=== PATIENT | female | born 1965 | race Caucasian/White ===

== ENCOUNTER 2016-10-16 15:47 | Emergency (ER) | payer MEDICARE, MEDICAID ==
[~2016-10-16] VITALS: Ht 167.6 cm; Wt 59.0 kg
[2016-10-16 16:11] LABS: BILIRUBIN,URINE NEGATIVE (NEG); GLUCOSE,URINE NEGATIVE (NEG); NITRITE,URINE NEGATIVE (NEG); PROTEIN,URINE NEGATIVE (NEG-TRACE); UROBILINOGEN,URINE 0.2 mg/dL (0.2 mg/dL)
--- NOTE | 2016-10-16 16:20 | PHYS DOC ---
Past Medical History Past Medical History: High Cholesterol, Hypertension, Hypothyroid Past Surgical History: Tubal ligation, Other Additional Past Surgical Histo: THYROIDECTOMY Alcohol Use: None Drug Use: None Adult General Chief Complaint Chief Complaint: ABDOMINAL PAIN HPI HPI Patient is a 51 year old female who presents with superpubic pain. She states it started about 3-4 days ago and a right upper quadrant now is down in her pubic area. She states it does hurt sometimes when she urinates and does have a vaginal discharge but denies any bleeding, constipation, nausea vomiting or diarrhea. She states the pains been constant in her suprapubic area nothing makes it better or worse. Review of Systems Review of Systems Constitutional: Denies fever or chills [] Eyes: Denies change in visual acuity, redness, or eye pain [] HENT: Denies nasal congestion or sore throat [] Respiratory: Denies cough or shortness of breath [] Cardiovascular: No additional information not addressed in HPI [] GI: Denies nausea, vomiting, bloody stools or diarrhea, positive for abdominal pain. : Denies dysuria or hematuria [] Musculoskeletal: Denies back pain or joint pain [] Integument: Denies rash or skin lesions [] Neurologic: Denies headache, focal weakness or sensory changes [] Endocrine: Denies polyuria or polydipsia [] Current Medications Current Medications Current Medications Medications (Trade) Dose Ordered Sig/Tk Start Time Stop Time Status Last Admin Dose Admin Info (Do NOT chart on this entry -- for MONITORING) 1 each PRN DAILY PRN 10/16/16 16:45 10/18/16 16:44 Iohexol (Omnipaque 240 Mg/ml) 50 ml 1X ONCE 10/16/16 16:30 10/16/16 16:31 DC Iohexol (Omnipaque 300 Mg/ml) 75 ml 1X ONCE 10/16/16 16:30 10/16/16 16:31 DC Morphine Sulfate 4 mg PRN Q15MIN PRN 10/16/16 16:15 10/17/16 16:14 10/16/16 16:22 4 MG Ondansetron HCl (Zofran) 4 mg 1X ONCE 10/16/16 16:30 10/16/16 16:31 DC 10/16/16 16:22 4 MG Sodium Chloride 1,000 ml @ 1,000 mls/hr Q1H 10/16/16 16:30 10/16/16 17:29 DC 10/16/16 16:22 1,000 MLS/HR Allergies Allergies Allergies Coded Allergies Type Severity Reaction Last Updated Verified No Known Drug Allergies 10/16/16 No Physical Exam Physical Exam Constitutional: Well developed, well nourished, no acute distress, non-toxic appearance. [] HENT: Normocephalic, atraumatic, bilateral external ears normal, oropharynx moist, no oral exudates, nose normal. [] Eyes: PERRLA, EOMI, conjunctiva normal, no discharge. [] Neck: Normal range of motion, no tenderness, supple, no stridor. [] Cardiovascular:Heart rate regular rhythm, no murmur [] Lungs & Thorax: Bilateral breath sounds clear to auscultation [] Abdomen/pelvic: Bowel sounds normal, soft, mild tender palpation in the suprapubic area, and no rebound or guarding, no tenderness in the right lower quadrant, no masses, no pulsatile masses. Normal external genitalia, no cervical motion tenderness, no bleeding noted. Skin: Warm, dry, no erythema, no rash. [] Back: No tenderness, no CVA tenderness. [] Extremities: No tenderness, no cyanosis, no clubbing, ROM intact, no edema. [] Neurologic: Alert and oriented X 3, normal motor function, normal sensory function, no focal deficits noted. [] Psychologic: Affect normal, judgement normal, mood normal. [] Current Patient Data Vital Signs Vital Signs Date Time Temp Pulse Resp B/P (MAP) Pulse Ox O2 Delivery O2 Flow Rate FiO2 10/16/16 15:57 98.4 63 20 181/87 (118) 99 Room Air 98.4 Lab Values Laboratory Tests Test 10/16/16 16:01 10/16/16 16:15 Prothrombin Time 12.5 SEC (11.7-14.0) Prothrombin Time INR 1.0 (0.8-1.1) PTT 30 SEC (24-38) Urine Collection Type Unknown Urine Color Yellow Urine Clarity Cloudy Urine pH 7.0 Urine Specific [place] 1.010 Urine Protein Negative mg/dL (NEG-TRACE) Urine Glucose (UA) Negative mg/dL (NEG) Urine Ketones (Stick) Negative mg/dL (NEG) Urine Blood Negative (NEG) Urine Nitrite Negative (NEG) Urine Bilirubin Negative (NEG) Urine Urobilinogen Dipstick 0.2 mg/dL (0.2 mg/dL) Urine Leukocyte Esterase Negative (NEG) Urine RBC 0 /HPF (0-2) Urine WBC 0 /HPF (0-4) Urine Squamous Epithelial Cells Few /LPF Urine Amorphous Sediment Present /HPF Urine Bacteria 0 /HPF (0-FEW) Urine Mucus Slight /LPF White Blood Count 10.2 x10^3/uL (4.0-11.0) Red Blood Count 4.51 x10^6/uL (3.50-5.40) Hemoglobin 14.5 g/dL (12.0-15.5) Hematocrit 42.5 % (36.0-47.0) Mean Corpuscular Volume 94 fL (79-100) Mean Corpuscular Hemoglobin 32 pg (25-35) Mean Corpuscular Hemoglobin Concent 34 g/dL (31-37) Red Cell Distribution Width 13.3 % (11.5-14.5) Platelet Count 444 x10^3/uL (140-400) H Neutrophils (%) (Auto) 75 % (31-73) H Lymphocytes (%) (Auto) 19 % (24-48) L Monocytes (%) (Auto) 4 % (0-9) Eosinophils (%) (Auto) 1 % (0-3) Basophils (%) (Auto) 1 % (0-3) Neutrophils # (Auto) 7.7 x10^3uL (1.8-7.7) Lymphocytes # (Auto) 1.9 x10^3/uL (1.0-4.8) Monocytes # (Auto) 0.4 x10^3/uL (0.0-1.1) Eosinophils # (Auto) 0.1 x10^3/uL (0.0-0.7) Basophils # (Auto) 0.1 x10^3/uL (0.0-0.2) Sodium Level 141 mmol/L (136-145) Potassium Level 3.2 mmol/L (3.5-5.1) L Chloride Level 102 mmol/L (98-107) Carbon Dioxide Level 32 mmol/L (21-32) Anion Gap 7 (6-14) Blood Urea Nitrogen 9 mg/dL (7-20) Creatinine 0.8 mg/dL (0.6-1.0) Estimated GFR (Cockcroft-Gault) 75.0 Glucose Level 145 mg/dL (70-99) H Calcium Level 9.7 mg/dL (8.5-10.1) Total Bilirubin 0.3 mg/dL (0.2-1.0) Direct Bilirubin 0.1 mg/dL (0.0-0.2) Aspartate Amino Transferase (AST) 16 U/L (15-37) Alanine Aminotransferase (ALT) 21 U/L (14-59) Alkaline Phosphatase 103 U/L (46-116) Creatine Kinase 55 U/L (26-192) Creatine Kinase MB (Mass) 0.5 ng/mL (0.0-3.6) Creatine Kinase MB Relative Index 0.9 % (0-4) Total Protein 7.1 g/dL (6.4-8.2) Albumin 3.6 g/dL (3.4-5.0) Lipase 188 U/L (73-393) Laboratory Tests 10/16/16 16:15 Laboratory Tests 10/16/16 16:15 Microbiology 10/16/16 Wet Prep - Final, Complete EKG EKG EKG shows sinus rhythm with rate of [address] elevations or T-wave inversions, normal axis, QTC 408 ms, as interpreted by me. Radiology/Procedures Radiology/Procedures [] Impressions: Abdominal pain Course & Med Decision Making Course & Med Decision Making Pertinent Labs and Imaging studies reviewed. (See chart for details) Patient's CT scan abdomen pelvis in addition to pelvic ultrasound is pending at this time. Patient's being checked out to Dr. Hagen for final disposition. Dragon Disclaimer Dragon Disclaimer This electronic medical record was generated, in whole or in part, using a voice recognition dictation system. Departure Departure Referrals: CARMELA SOSA (PCP) NILA ALCAZAR MD Oct 16, 2016 16:20
[2016-10-16] MEDS: MORPHINE SULFATE 4 MG/ML DISP.SYRIN. IV/SQ PRN ×2 (16:22→19:50)
[2016-10-16] MEDS ORDERED: IOHEXOL 240 MG/ML 50ML VIAL. PO ONE (16:30)
[2016-10-16] MEDS ORDERED: IOHEXOL 300 MG/ML 75 ML VIAL IV ONE (16:30)
[2016-10-16] MEDS ORDERED: ONDANSETRON PF 4 MG/2 ML VIAL. IV ONE (16:30)
[2016-10-16] MEDS ORDERED: IV NORMAL SALINE 1000ML BAG 1,000 ML IV SCH (16:30)
[2016-10-16 16:34] LABS: BASO # 0.1 x10^3/uL (0.0-0.2); BASO % 1 % (0-3); EOS % 1 % (0-3); HEMATOCRIT 42.5 % (36.0-47.0); HEMOGLOBIN 14.5 g/dL (12.0-15.5); LYMPH # 1.9 x10^3/uL (1.0-4.8); LYMPH % 19 % (24-48); MEAN CORPUSCULAR HEMOGLOBIN 32 pg (25-35); MEAN CORPUSCULAR HGB CONC 34 g/dL (31-37); MEAN CORPUSCULAR VOLUME 94 fL (79-100); MONO % 4 % (0-9); NEUT % 75 % (31-73); PLATELET COUNT 444 x10^3/uL (140-400); RED BLOOD COUNT 4.51 x10^6/uL (3.50-5.40); RED CELL DISTRIBUTION WIDTH 13.3 % (11.5-14.5); WHITE BLOOD COUNT 10.2 x10^3/uL (4.0-11.0)
[2016-10-16 16:38] LABS: CALCIUM 9.7 mg/dL (8.5-10.1); CREATININE 0.8 mg/dL (0.6-1.0); POTASSIUM 3.2 mmol/L (3.5-5.1)
[2016-10-16 16:40] LABS: BACTERIA,URINE 0 /HPF (0-FEW); RBC,URINE 0 /HPF (0-2); SQUAMOUS EPITHELIAL CELL,UR FEW /LPF; WBC,URINE 0 /HPF (0-4)
[2016-10-16 16:44] LABS: ALBUMIN 3.6 g/dL (3.4-5.0); DIRECT BILIRUBIN 0.1 mg/dL (0.0-0.2); TOTAL BILIRUBIN 0.3 mg/dL (0.2-1.0); TOTAL PROTEIN 7.1 g/dL (6.4-8.2)
[2016-10-16] MEDS ORDERED: CONTRAST GIVEN MC PRN (16:45)
[2016-10-16 16:51] LABS: PROTHROMBIN TIME PATIENT 12.5 SEC (11.7-14.0)
[2016-10-16 16:57] LABS: CKMB MASS 0.5 ng/mL (0.0-3.6)
--- NOTE | 2016-10-16 18:16 | RAD ---
Examination: Ultrasound pelvis HISTORY: History of pelvic pain COMPARISON: None available Findings: The uterus measures 7.4 x 4.8 x 2.2 cm. The endometrium measures 3.1 mm in transverse dimension. The right ovary measures 1.3 x1.2 x 1.1 cm. The left ovary measures 2.4 x 1.3 x1.3 cm Blood flow identified in the right and left ovaries. Nabothian cysts identified in the cervix. No significant free fluid identified in the pelvis. Examination somewhat limited due to bowel gas. IMPRESSION: 1. Unremarkable visualized exam. Electronically signed by: Juan David Mcpherson MD (10/16/2016 6:13 PM) [facility]
--- NOTE | 2016-10-16 18:37 | EKG ---
[facility] [address] [place] [address] Test Date: 2016-10-16 Test Time: 16:33:52 Pat Name: LIANNE LUTZ Department: Room: Gender: F [employer] Operator: : 1965 Requested By: NILA ALCAZAR Order Number: [id number] Reading MD: Measurements Intervals [place] Rate: 61 P: 50 UT: 146 QRS: 14 QRSD: 68 T: 28 QT: 404 QTc: 408 Interpretive Statements SINUS RHYTHM QRS(T) CONTOUR ABNORMALITY CONSISTENT WITH ANTEROSEPTAL INFARCT PROBABLY OLD RI6.01 Unconfirmed report No previous ECG available for comparison
--- NOTE | 2016-10-16 18:40 | RAD ---
CT study of the abdomen and pelvis with contrast HISTORY: Abdominal pain for 5 days. TECHNIQUE: After IV infusion of 75 cc Omnipaque 300, helical CT scanning of the abdomen and pelvis was performed. GI contrast was administered per mouth. PQRS compliance Statement One or more of the following individualized dose reduction techniques were utilized for this study: 1. Automated exposure control 2. Adjustment of the mA and/or kV according to patient size 3. Use of iterative reconstruction technique COMPARISON: None available. FINDINGS: The liver and spleen are normal. There is fullness of the tail and body of the pancreas. No peripancreatic free fluid or inflammatory change is seen. No pseudocyst is seen. The pancreas enhances homogeneously. There is mild gallbladder wall thickening and enhancement. There is mild dilatation of the extra hepatic bile duct measuring up to 11 mm. A duodenal diverticulum is seen within the head of the pancreas. No adrenal mass is evident. No hydronephrosis or hydroureter is seen. The urinary bladder wall is smooth. Small right renal cysts are seen. No focal aneurysmal dilatation of the abdominal aorta is seen. No enlarged abdominal or pelvic lymphadenopathy is seen. No uterine mass is evident. No dominant ovarian cyst or mass is seen. No obstructive bowel pattern is evident. The appendix is normal. The terminal ileum is unremarkable. No bowel wall thickening is seen. No free air or free fluid or mesenteric inflammatory change is seen. There is a calcified granuloma of the right lung base posteriorly. No osteolytic process is seen. IMPRESSION: There is fullness of the body and tail of the pancreas which may represent a normal anatomical variant. Correlation with pancreatic enzymes is recommended to exclude pancreatitis. There are no other findings of pancreatitis and the pancreas enhances homogeneously. Gallbladder wall enhancement with mild gallbladder wall thickening. This may represent cholecystitis. There is mild dilatation of the extra hepatic bile duct. Recommend right upper quadrant abdomen ultrasound study for further evaluation. Electronically signed by: Jamaal Can MD (10/16/2016 6:37 PM) [facility]
[2016-10-16 20:50] VITALS: BP 123/78
--- NOTE | 2016-10-16 21:00 | RAD ---
Limited abdomen ultrasound study of the right upper quadrant Clinical indications: Abdominal pain for 5 days. Abnormal appearance of the gallbladder seen on CT study today. FINDINGS: The pancreas is homogeneous by sonography. The liver is homogeneous by sonography and measures 16.6 cm in length. The gallbladder is small and contracted. Gallbladder wall measures 4 mm in thickness which is mildly thickened. No pericholecystic free fluid is seen. No gallstone is seen. The extrahepatic bile duct is mildly dilated measuring 9 mm. The length of the right kidney is 11.3 cm. No hydronephrosis or renal mass or perinephric fluid collection is seen on this side. IMPRESSION: Small contracted gallbladder with mild gallbladder wall thickening of 4 mm. No gallstone is seen. Dilatation of the extra hepatic bile duct measured 9.2 mm. Electronically signed by: Jamaal Can MD (10/16/2016 8:57 PM) [facility]
[2016-10-16] MEDS ORDERED: ONDA4TAB7 PO (21:14)
[2016-10-16] MEDS ORDERED: DICY10CA53 PO (21:14)
[2016-10-16] MEDS ORDERED: POTASSIUM CHLORIDE 20 MEQ/15 ML ORAL LIQUID. PO ONE (21:15)
[2016-10-16] MEDS ORDERED: clonazePAM 0.5 MG TABLET PO ONE (21:15)
== END 2016-10-16 21:29 | disposition home or self-care (01) ==
LOC: ER 15:47
DX: R10.11 Right upper quadrant pain (principal); N89.8 Other specified noninflammatory disorders of vagina; E03.9 Hypothyroidism, unspecified; I10 Essential (primary) hypertension; E78.00 Pure hypercholesterolemia, unspecified; Z98.51 Tubal ligation status
CPT/HCPCS: 36415; 74177; 76705; 76856; 80048; 80076; 81001; 82553; 83690; 85025; 85610; 85730; 87491; 87591; 93005; 96361; 96374; 96375; 96376; 99285; J2270; J2405; J7030; Q0111; Q9966; Q9967

== ENCOUNTER 2018-10-21 13:41 | Emergency (ER) | payer MEDICARE, MEDICAID ==
[~2018-10-21] VITALS: Ht 167.6 cm; Wt 68.0 kg
[~2018-10-21 13:41] MED LIST: DICY10CA53 PO; ONDA4TAB7 PO
--- NOTE | 2018-10-21 14:24 | RAD ---
EXAM: CHEST 1 VIEW History: Syncope COMPARISON: 10/26/2011 TECHNIQUE: Single portable radiograph of the chest FINDINGS: The cardiac silhouette is unremarkable. Two small probable 6 mm nodules identified in the right lung base. The costophrenic sulci are clear and well demarcated. IMPRESSION: 1. No acute cardiopulmonary findings. 2. Probable two 6 mm nodules or granulomas identified in the right lung base. Follow-up nonemergent CT chest can be considered. Electronically signed by: Juan David Mcpherson MD (10/21/2018 2:22 PM) [facility]
[2018-10-21] MEDS: IV NORMAL SALINE 1000ML BAG 1,000 ML IV ONE (14:31)
[2018-10-21 14:51] LABS: BASO # 0.1 x10^3/uL (0.0-0.2); BASO % 1 % (0-3); EOS # 0.1 x10^3/uL (0.0-0.7); EOS % 1 % (0-3); HEMATOCRIT 43.7 % (36.0-47.0); LYMPH # 1.3 x10^3/uL (1.0-4.8); LYMPH % 15 % (24-48); MEAN CORPUSCULAR HEMOGLOBIN 32 pg (25-35); MEAN CORPUSCULAR HGB CONC 34 g/dL (31-37); MEAN CORPUSCULAR VOLUME 94 fL (79-100); MONO # 0.7 x10^3/uL (0.0-1.1); MONO % 8 % (0-9); NEUT # 6.6 x10^3/uL (1.8-7.7); NEUT % 75 % (31-73); PLATELET COUNT 476 x10^3/uL (140-400); RED BLOOD COUNT 4.68 x10^6/uL (3.50-5.40); RED CELL DISTRIBUTION WIDTH 14.8 % (11.5-14.5); WHITE BLOOD COUNT 8.8 x10^3/uL (4.0-11.0)
[2018-10-21 15:04] LABS: CALCIUM 10.2 mg/dL (8.5-10.1); GFR 57.6; POTASSIUM 4.2 mmol/L (3.5-5.1)
[2018-10-21 15:11] LABS: ALBUMIN 4.3 g/dL (3.4-5.0); ALBUMIN/GLOBULIN RATIO 1.3 (1.0-1.7); MAGNESIUM 2.4 mg/dL (1.8-2.4); TOTAL BILIRUBIN 0.4 mg/dL (0.2-1.0); TOTAL PROTEIN 7.5 g/dL (6.4-8.2)
--- NOTE | 2018-10-21 15:24 | RAD ---
CT HEAD INDICATION: Syncope COMPARISON: None Available. Exposure: One or more of the following individualized dose reduction techniques were utilized for this examination: 1. Automated exposure control 2. Adjustment of the mA and/or kV according to patient size 3. Use of iterative reconstruction technique TECHNIQUE: 5 mm contiguous axial images were obtained from the skull base to the vertex in both bone and soft tissue algorithm. FINDINGS: Mild bilateral periventricular white matter hypodensities. No evidence of acute intracranial hemorrhage. No extra-axial fluid collections. No mass effect or midline shift. Ventricular size is appropriate. Basal cisterns are patent. No fractures identified.Farrell-white differentiation is preserved.Globes and orbits are within normal limits. Paranasal sinuses and mastoid air cells are clear. IMPRESSION: No acute intracranial findings. Electronically signed by: Juan David Mcpherson MD (10/21/2018 3:22 PM) [facility]
[2018-10-21 16:07] LABS: BARBITURATES NEG (NEG); BENZODIAZEPINES NEG (NEG); CANNABINOIDS POS (NEG); COCAINE NEG (NEG); METHADONE NEG (NEG); OPIATES NEG (NEG); PHENCYCLIDINE NEG (NEG)
[2018-10-21 16:18] LABS: AMPHETAMINE/METHAMPHETAMINE NEG (NEG)
--- NOTE | 2018-10-21 16:39 | PHYS DOC ---
Past Medical History Past Medical History: High Cholesterol, Hypertension, Hypothyroid Additional Past Medical Histor: HEP C Past Surgical History: Tubal ligation, Other Additional Past Surgical Histo: THYROIDECTOMY Alcohol Use: None Drug Use: None Adult General Chief Complaint Chief Complaint: SYNCOPE HPI HPI Patient is a 53 year old female who presents via EMS with complaining of syncope. Patient states she was outside talking with her brother in the shade and does not remember what happened to her. Patient had a syncopal episode for a few seconds without head injury or fall or seizure activity. Patient states she had half a can of beer today and used marijuana yesterday after a long time not using marijuana. Patient denies chest pain, focal neuro deficit, nausea and vomiting, history of syncope. Review of Systems Review of Systems Constitutional: Denies fever or chills [] Eyes: Denies change in visual acuity, redness, or eye pain [] HENT: Denies nasal congestion or sore throat [] Respiratory: Denies cough or shortness of breath [] Cardiovascular: No additional information not addressed in HPI [] GI: Denies abdominal pain, nausea, vomiting, bloody stools or diarrhea [] : Denies dysuria or hematuria [] Musculoskeletal: Denies back pain or joint pain [] Integument: Denies rash or skin lesions [] Neurologic: Denies headache, focal weakness or sensory changes [] Endocrine: Denies polyuria or polydipsia [] All other systems were reviewed and found to be within normal limits, except as documented in this note. Current Medications Current Medications Current Medications Medications (Trade) Dose Ordered Sig/Tk Start Time Stop Time Status Last Admin Dose Admin Sodium Chloride 1,000 ml @ 1,000 mls/hr 1X ONCE 10/21/18 14:00 10/21/18 14:59 DC 10/21/18 14:31 1,000 MLS/HR Allergies Allergies Allergies Coded Allergies Type Severity Reaction Last Updated Verified No Known Drug Allergies 10/16/16 No Physical Exam Physical Exam Constitutional: Well developed, well nourished, mild distress, non-toxic grey earance. [] HENT: Normocephalic, atraumatic. Eyes: PERRLA, EOMI, conjunctiva normal, no discharge. [] Neck: Normal range of motion, no tenderness, supple, no stridor. [] Cardiovascular:Heart rate regular rhythm, no murmur [] Lungs & Thorax: Bilateral breath sounds clear to auscultation [] Abdomen: Bowel sounds normal, soft, no tenderness, no masses, no pulsatile masses. [] Skin: Warm, dry, no erythema, no rash. [] Back: No tenderness, no CVA tenderness. [] Extremities: No tenderness, no cyanosis, no clubbing, ROM intact, no edema. [] Neurologic: Alert and oriented X 3, no focal deficits noted. [] Psychologic: Affect anxious , judgement normal, mood normal. [] Current Patient Data Vital Signs Vital Signs Date Time Temp Pulse Resp B/P (MAP) Pulse Ox O2 Delivery O2 Flow Rate FiO2 10/21/18 14:13 78 108/67 (81) 99 Room Air 10/21/18 13:45 97.9 16 97.9 Lab Values Laboratory Tests Test 10/21/18 14:45 10/21/18 15:50 White Blood Count 8.8 x10^3/uL (4.0-11.0) Red Blood Count 4.68 x10^6/uL (3.50-5.40) Hemoglobin 15.0 g/dL (12.0-15.5) Hematocrit 43.7 % (36.0-47.0) Mean Corpuscular Volume 94 fL (79-100) Mean Corpuscular Hemoglobin 32 pg (25-35) Mean Corpuscular Hemoglobin Concent 34 g/dL (31-37) Red Cell Distribution Width 14.8 % (11.5-14.5) H Platelet Count 476 x10^3/uL (140-400) H Neutrophils (%) (Auto) 75 % (31-73) H Lymphocytes (%) (Auto) 15 % (24-48) L Monocytes (%) (Auto) 8 % (0-9) Eosinophils (%) (Auto) 1 % (0-3) Basophils (%) (Auto) 1 % (0-3) Neutrophils # (Auto) 6.6 x10^3/uL (1.8-7.7) Lymphocytes # (Auto) 1.3 x10^3/uL (1.0-4.8) Monocytes # (Auto) 0.7 x10^3/uL (0.0-1.1) Eosinophils # (Auto) 0.1 x10^3/uL (0.0-0.7) Basophils # (Auto) 0.1 x10^3/uL (0.0-0.2) Sodium Level 143 mmol/L (136-145) Potassium Level 4.2 mmol/L (3.5-5.1) Chloride Level 105 mmol/L (98-107) Carbon Dioxide Level 30 mmol/L (21-32) Anion Gap 8 (6-14) Blood Urea Nitrogen 14 mg/dL (7-20) Creatinine 1.0 mg/dL (0.6-1.0) Estimated GFR (Cockcroft-Gault) 57.6 BUN/Creatinine Ratio 14 (6-20) Glucose Level 100 mg/dL (70-99) H Calcium Level 10.2 mg/dL (8.5-10.1) H Magnesium Level 2.4 mg/dL (1.8-2.4) Total Bilirubin 0.4 mg/dL (0.2-1.0) Aspartate Amino Transferase (AST) 16 U/L (15-37) Alanine Aminotransferase (ALT) 35 U/L (14-59) Alkaline Phosphatase 90 U/L (46-116) Troponin I Quantitative < 0.017 ng/mL (0.000-0.055) NN-Hcr-Q-Type Natriuretic Peptide 52 pg/mL (0-124) Total Protein 7.5 g/dL (6.4-8.2) Albumin 4.3 g/dL (3.4-5.0) Albumin/Globulin Ratio 1.3 (1.0-1.7) Ethyl Alcohol Level < 10 mg/dL (0-10) Urine Opiates Screen Neg (NEG) Urine Methadone Screen Neg (NEG) Urine Barbiturates Neg (NEG) Urine Phencyclidine Screen Neg (NEG) Urine Amphetamine/Methamphetamine Neg (NEG) Urine Benzodiazepines Screen Neg (NEG) Urine Cocaine Screen Neg (NEG) Urine Cannabinoids Screen Pos (NEG) Urine Ethyl Alcohol Neg (NEG) Laboratory Tests 10/21/18 14:45 Laboratory Tests 10/21/18 14:45 EKG EKG EKG interpreted by me. EKG at 54 showed normal sinus rhythm at rate of 72, normal [place] and QT intervals, no acute ST-T wave elevation. Radiology/Procedures Radiology/Procedures [][facility] [address] [place] [address] IMAGING REPORT Signed PATIENT: LIANNE LUTZ ACCOUNT: [id number] : 1965 LOCATION: ER AGE: 53 SEX: F EXAM STATUS: PRE ER ORD. PHYSICIAN: ALBERT COTTRELL MD REASON: syncope, nausea, vomiting x1 day PROCEDURE: CHEST AP ONLY EXAM: CHEST 1 VIEW History: Syncope COMPARISON: 10/26/2011 TECHNIQUE: Single portable radiograph of the chest FINDINGS: The cardiac silhouette is unremarkable. Two small probable 6 mm nodules identified in the right lung base. The costophrenic sulci are clear and well demarcated. IMPRESSION: 1. No acute cardiopulmonary findings. 2. Probable two 6 mm nodules or granulomas identified in the right lung base. Follow-up nonemergent CT chest can be considered. Electronically signed by: Juan David Mcpherson MD (10/21/2018 2:22 PM) [facility] DICTATED and SIGNED BY: JUAN DAVID MCPHERSON MD DATE: 10/21/18 1422 [facility] [address] [place] [address] IMAGING REPORT Signed PATIENT: LIANNE LUTZ ACCOUNT: [id number] : 1965 LOCATION: ER AGE: 53 SEX: F EXAM STATUS: REG ER ORD. PHYSICIAN: ALBERT COTTRELL MD REASON: syncope PROCEDURE: CT HEAD WO CONTRAST CT HEAD INDICATION: Syncope COMPARISON: None Available. Exposure: One or more of the following individualized dose reduction techniques were utilized for this examination: 1. Automated exposure control 2. Adjustment of the mA and/or kV according to patient size 3. Use of iterative reconstruction technique TECHNIQUE: 5 mm contiguous axial images were obtained from the skull base to the vertex in both bone and soft tissue algorithm. FINDINGS: Mild bilateral periventricular white matter hypodensities. No evidence of acute intracranial hemorrhage. No extra-axial fluid collections. No mass effect or midline shift. Ventricular size is appropriate. Basal cisterns are patent. No fractures identified.Farrell-white differentiation is preserved.Globes and orbits are within normal limits. Paranasal sinuses and mastoid air cells are clear. IMPRESSION: No acute intracranial findings. Electronically signed by: Juan David Mcpherson MD (10/21/2018 3:22 PM) [facility] DICTATED and SIGNED BY: JUAN DAVID MCPHERSON MD DATE: 10/21/18 1522 Course & Med Decision Making Course & Med Decision Making Pertinent Labs and Imaging studies reviewed. (See chart for details) Evaluation of patient in ER showed 53-year-old female patient brought in by EMS because of syncopal episode. Patient had unremarkable physical exam and labs and EKG and chest x-ray and CT head except for a central finding of 2 small lung nodule. Patient did not have orthostatic vitals and treated with IV fluid and felt better. Patient was advised to not use drug and quit smoking and follow up with her primary care physician regarding lung nodule. Dragon Disclaimer Dragon Disclaimer This electronic medical record was generated, in whole or in part, using a voice recognition dictation system. Departure Departure Impression: Primary Impression: Syncope Additional Impression: Lung nodule seen on imaging study Disposition: HOME, SELF-CARE (at 1638) Condition: IMPROVED Referrals: NO PCP (PCP) Patient Instructions: Syncope Additional Instructions: Drink plenty of liquids Follow-up with your primary care physician in 3-5 days Return to ER if not getting better Problem Qualifiers Primary Impression: Syncope Syncope type: unspecified Qualified Codes: R55 - Syncope and collapse ALBERT COTTRELL MD Oct 21, 2018 16:39
[2018-10-21 16:44] VITALS: BP 137/84
--- NOTE | 2018-10-21 16:48 | EKG ---
[facility] [address] [place] [address] Test Date: 2018-10-21 Test Time: 13:54:27 Pat Name: LIANNE LUTZ Department: Room: Gender: F Building Construction Ironworker: : 1965 Requested By: ALBERT COTTRELL Order Number: [id number] Reading MD: Garcia Jara MD Measurements Intervals [place] Rate: 72 P: 50 ND: 148 QRS: 18 QRSD: 68 T: 71 QT: 404 QTc: 444 Interpretive Statements SINUS RHYTHM Electronically Signed On 10-22-2018 18:16:32 CDT by Garcia Jara MD
== END 2018-10-21 17:06 | disposition home or self-care (01) ==
LOC: ER 13:41
DX: R55 Syncope and collapse (principal); R91.1 Solitary pulmonary nodule; E78.00 Pure hypercholesterolemia, unspecified; I10 Essential (primary) hypertension; E03.9 Hypothyroidism, unspecified; Z98.51 Tubal ligation status
CPT/HCPCS: 36415; 70450; 71045; 80053; 80307; 83735; 83880; 84484; 85025; 93005; 96360; 99285; G0480; J7030